=== PATIENT | male | born 1985 | race African-American/Black ===

== ENCOUNTER 2018-05-04 07:16 | Emergency (ER) | payer SELFPAY ==
[2018-05-04 07:24] VITALS: TEMP 98.3; BMI 36.1
--- NOTE | 2018-05-04 07:58 | PDOC ---
History of Present Illness - General Chief Complaint: Pain Stated Complaint: FINGER INJURY Time Seen by Provider: 05/04/18 07:53 History Source: Patient - History of Present Illness Initial Comments: 05/04/18 08:12 The patient is a 32 year old male who presents with a swollen, painful L third finger . 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 Patient visited urgent care yesterday where his he states his fingernail was drilled and he was told to take Motrin for pain. Patient presented to the ED today c/o increased severity of pain. Denies any fevers/chills. NKDA Surgical: none reported Social: denies toxic habits PMD: None- will refer to IM resident clinic Past History - Past Medical History Allergies/Adverse Reactions: Allergies Allergy/AdvReac Type Severity Reaction Status Date / Time No Known Allergies Allergy Verified 05/04/18 08:22 Home Medications: Ambulatory Orders NK [No Known Home Medication] 05/04/18 COPD: No - Suicide/Smoking/Psychosocial Hx Smoking History: Never smoked Review of Systems - Review of Systems Constitutional: No: Chills, Fever HEENTM: No: Blurred Vision, Double Vision Respiratory: No: Cough, Shortness of Breath Cardiac (ROS): No: Chest Pain, Lightheadedness, Palpitations, Syncope ABD/GI: No: Constipated, Diarrhea, Nausea, Vomiting : No: Burning, Dysuria *Physical Exam - Vital Signs Last Vital Signs Temp Pulse Resp BP Pulse Ox 98.3 F 68 16 154/89 05/04/18 07:22 05/04/18 07:22 05/04/18 07:22 05/04/18 07:22 - Physical Exam General Appearance: Yes: Nourished, Appropriately Dressed HEENT: positive: Normal Voice, Hearing Grossly Normal Neck: positive: Trachea midline, Supple Respiratory/Chest: positive: Lungs Clear, Normal Breath Sounds Cardiovascular: positive: S1, S2. negative: JVD Gastrointestinal/Abdominal: positive: Soft. negative: Tender Extremity: positive: Other (Subungual hematoma on L 3rd digit; NVI, full ROM, exquisitely tender) Integumentary: positive: Dry, Warm Neurologic: positive: Fully Oriented, Alert Medical Decision Making - Medical Decision Making 05/04/18 08:26 32 year old male w/L third digit subungal hematoma s/p drainage. VS unremarkable. NVI and exquisitely tender on PE. Will obtain Finger XR to r/o fracture. Tylenol for pain. Reassess. 05/04/18 09:12 Finger XR negative for acute fracture/subluxation. Digital nerve block + Subungual drainage using 18 sara needle. Patient tolerated procedure with minimal discomfort. Will discharge home with return precautions and PMD referral to establish primary care. I discussed the physical exam findings, ancillary test results and final diagnoses with the patient. I answered all of the patient's questions. The patient was satisfied with the care received and felt comfortable with the discharge plan and treatment plan. The patient will return to the Emergency Department with any new, persistent or worsening symptoms. *DC/Admit/Observation/Transfer Diagnosis at time of Disposition: Subungual hematoma of digit of hand - Discharge Dispostion Disposition: HOME Condition at time of disposition: Good Decision to Admit order: No - Referrals Referrals: Chavo Last MD [Staff Physician] - - Patient Instructions Printed Discharge Instructions: DI for Subungual Hematoma Additional Instructions: Your finger will continue to drain blood. Apply pressure as tolerated. You can take Tylenol (up to 4000 mg daily) alternating with Motrin (up to 3200 mg daily) for your pain for 3 days. Please make an appointment with Dr. Berhane Tony (contact information included) to establish primary care Return to the Emergency Department for any new/worsening/concerning symptoms including increased pain, foul smelling discharge. - Post Discharge Activity Forms/Work/School Notes: Back to Work
[2018-05-04] MEDS ORDERED: ACETAMINOPHEN 500 MG TABLET (FP) PO ONE (08:22)
--- NOTE | 2018-05-04 08:22 | PDOC ---
Attending Attestation - Resident Resident Name: [email or web address] - ED Attending Attestation I have performed the following: I have examined & evaluated the patient, The case was reviewed & discussed with the resident, I agree w/resident's findings & plan, Exceptions are as noted - HPI HPI: 05/04/18 08:18 32y M no pmhx presents with left 3rd digit pain after having a door closed on it on 05/02. The patient went to urgent care yesterday and had a subungual hematoma drained. The patient notes that the pain improved mildly however when he woke up this morning the pain had increased. He lies any fever, chills, numbness, tingling denies any other injuries or pain. The patient does note that the pain feels like a pounding in his finger. On exam the patient's left ring finger has a subungual hematoma no active drainage from the drainage site - Physicial Exam PE: 05/04/18 09:55 see above - Medical Decision Making 05/04/18 09:54 xray neg for fracture pts subungual hematoma was again drained using the same site, using 18g needle with significant releif of his pain. will dc the pt with pmd fu return precautions were discussed
[2018-05-04] MEDS ORDERED: LIDOCAINE HCL 2% (20ML MULTI-DOSE VIAL) NR ONE (09:30)
[2018-05-04 10:16] VITALS: BP 140/84; PULSE 67
== END 2018-05-04 10:16 | disposition home or self-care (01) ==
LOC: JER 07:16
PROC: 0H9QXZZ Drainage of Finger Nail, External Approach (ICD-10-PCS; principal; 2018-05-04)
DX: S60.132A Contusion of left middle finger with damage to nail, initial encounter (principal); W23.0XXA Caught, crushed, jammed, or pinched between moving objects, initial encounter; Y93.89 Activity, other specified; Y92.89 Other specified places as the place of occurrence of the external cause
CPT/HCPCS: 73140-TC-LT-FY; 99282-25